=== PATIENT | female | born 1985 | race African-American/Black ===

== ENCOUNTER 2019-11-20 09:59 | Emergency (ER) | payer OTHER, SELFPAY ==
[2019-11-20 10:10] VITALS: BP 128/76; PULSE 74; RESP 16; TEMP 37.3; O2SAT 100
--- NOTE | 2019-11-20 10:13 | ED.DENTAL ---
HPI - Dental/Oral General Chief complaint: Dental/Oral Stated complaint: tootache Time Seen by Provider: 11/20/19 10:13 Source: patient and RN notes reviewed History of Present Illness HPI Narrative: Patient is a 33-year-old female that presents the urgent care with complaints of toothache. Patient states her pain started yesterday. Woke up with upper right cheek swelling. Patient states that 2 weeks ago she got 6 teeth pulled and was never placed on an antibiotic but was given pain medication. Patient has been taking the medication as needed. No other acute complaints. Denies any nausea, vomiting, fever. No acute distress noted. Patient read the plan of care. Related Data Allergies Allergy/AdvReac Type Severity Reaction Status Date / Time No Known Allergies Allergy Verified 11/20/19 10:18 Review of Systems Review of Systems: Narrative: CONSTITUTIONAL: Denies fever, chills, or sweats. EYES: Denies visual changes, redness, or discharge. ENT: Denies rhinorrhea, congestion, sore throat, or otalgia. Reports of right upper dental pain and facial swelling CARDIOVASCULAR: Denies chest pain, palpitations, or edema. RESPIRATORY: Denies cough or dyspnea. GASTROINTESTINAL: Denies abdominal pain, nausea, vomiting, or diarrhea. GENITOURINARY: Denies dysuria or hematuria. SKIN: Denies rash or itching. MUSCULOSKELETAL: Denies back pain, joint pain, or myalgia. NEUROLOGIC: Denies headache, numbness, or weakness. All other systems reviewed are negative, except as documented in HPI. PMFSH Comments At the time of my signature, I reviewed and agree with the nursing past medical, surgical, social, and family history. There is no relevant family history pertinent to the patient complaint. Exam Narrative: Exam Narrative: GENERAL: This is a well-nourished, well-developed patient, in no apparent distress. HEAD: normocephalic, atraumatic. EYES: PERRL. Sclera clear/white. Vision is grossly intact. EARS: External ears normal NOSE: External nose normal with no obvious nasal discharge THROAT: Mucous membranes moist, posterior pharynx clear. Notable caries to the posterior of the upper right canine, tooth number #6 with right-sided facial swelling NECK: Neck supple CARDIOVASCULAR: Regular rate SKIN: warm, intact with no suspicious lesions or rash, good texture and turgor. NEURO: awake, alert, and oriented to person, place and time. There were no obvious focal neurologic abnormalities. EXTREMITIES: No clubbing, cyanosis, or edema. Course Vital Signs Vital signs: Vital Signs Temperature 99.1 F 11/20/19 10:10 Pulse Rate 74 11/20/19 10:10 Respiratory Rate 16 11/20/19 10:10 Blood Pressure 128/76 11/20/19 10:10 Pulse Oximetry 100 11/20/19 10:10 Temperature 99.1 F 11/20/19 10:10 Pulse Rate 74 11/20/19 10:10 Respiratory Rate 16 11/20/19 10:10 Blood Pressure 128/76 11/20/19 10:10 Pulse Oximetry 100 11/20/19 10:10 Reviewed MDM - Dental/Oral MDM Narrative Medical decision making narrative: Advised patient to continue using [id number] pain medicine or prescribed medication as needed for pain. May use ice pack to the right face for comfort. Complete antibiotic regimen as prescribed. If you develop any increase in swelling associated with nausea, vomiting, fever?go to the emergency room. Make sure to eat and drink with medication. Follow-up with dentist as scheduled on November 26. Differential Diagnosis Differential diagnosis: Likely gingival abscess, dental caries, toothache, dental abscess and fracture of tooth Critical Care Time Critical Care Time Critical Care Time: No Discharge Plan Discharge Clinical Impression: Dental caries, Right facial swelling Patient Disposition: Home, Self-Care Condition: Stable Instructions: Antibiotic Form, Dental Abscess (ED) Additional Instructions: Advised patient to continue using [id number] pain medicine or prescribed medication as needed for pain. May use
== END 2019-11-20 10:25 | disposition home or self-care (01) ==
PROVIDERS: Emergency Provider Nurse Practitioner Family
DX: K02.9 Dental caries, unspecified (principal); R22.0 Localized swelling, mass and lump, head
CPT/HCPCS: 99213; G0463